=== PATIENT | female | born 1970 | race Caucasian/White ===

== ENCOUNTER 2024-05-24 08:03 | Emergency (ER) | payer OTHER, SELFPAY ==
--- NOTE | 2024-05-24 08:12 | ED.URI ---
HPI - URI/Sore Throat General Chief Complaint: Urogenital-Female Stated Complaint: urinary issue Time Seen by Provider: 05/24/24 08:11 Source: patient Mode of arrival: ambulatory Limitations: no limitations History of Present Illness HPI Narrative: Shae is a 53-year-old female patient presenting to the clinic today with complaints of symptoms of urinary tract infection. States that her symptoms started yesterday with bladder pain, nausea, and left flank pain. Gets frequent UTI/kidney infections. She has been taking [id number] azo to treat her symptoms. She denies any fever chills. Does feel slightly lightheaded. Denies any chest pain, shortness breath, abdominal pain, or body aches. Related Data Home Medications Medication Instructions Recorded Confirmed alprazolam 1 mg tablet 1 mg PO BID 05/24/24 05/24/24 bupropion HCl 300 mg 24 hr tablet, 300 mg PO DAILY 05/24/24 05/24/24 extended release levothyroxine 125 mcg tablet 125 mcg PO DAILY 05/24/24 05/24/24 meloxicam 15 mg tablet 15 mg PO DAILY 05/24/24 05/24/24 phentermine 30 mg capsule 30 mg PO DAILY 05/24/24 05/24/24 polyethylene glycol 3350 17 17 g PO DAILY 05/24/24 05/24/24 gram/dose oral powder (Miralax) Allergies Allergy/AdvReac Type Severity Reaction Status Date / Time penicillin G Allergy Mild hives Verified 05/24/24 08:17 Review of Systems Review of Systems: Pertinent positives per HPI. Patient denies any fever, chills, rash, headache, visual changes, dizziness, cough, runny nose, sore throat, shortness of breath, chest pain, palpitations, diarrhea, constipation, abdominal pain. PMFSH Comments At the time of my signature, I reviewed and agree with the nursing past medical, surgical, social, and family history. There is no relevant family history pertinent to the patient complaint. Exam Narrative: General: Well-developed, obese, in no apparent distress. Head: Normocephalic, atraumatic. Cardio: Regular rate and rhythm, s1 and s2 normal, no murmur appreciated. Resp: Clear to auscultation bilaterally, no rhonchi, rales, wheezing or rubs. Abdomen: Soft, pliable, bowel sounds present in all quadrants, non-tender to palpation, no organomegly, no CVAT tenderness. Course Course Emergency Course: Portions of this record may have been created with voice recognition software. Level of Care: Express Care Visit Vital Signs Vital signs: Vital Signs Temperature 37.2 C 05/24/24 08:23 Pulse Rate 102 H 05/24/24 08:23 Respiratory Rate 16 05/24/24 08:23 Blood Pressure 97/61 L 05/24/24 08:23 Pulse Oximetry 100 05/24/24 08:23 Oxygen Delivery Room Air 05/24/24 08:23 Temperature 37.2 C 05/24/24 08:23 Pulse Rate 102 H 05/24/24 08:23 Respiratory Rate 16 05/24/24 08:23 Blood Pressure 97/61 L 05/24/24 08:23 Pulse Oximetry 100 05/24/24 08:23 Oxygen Delivery Room Air 05/24/24 08:23 Vital signs reviewed MDM - URI/Sore Throat MDM Narrative Medical decision making narrative: At the time of visit patient is resting comfortably on the exam table. Patient appears to be nontoxic. Labs: Urine culture was sent to the lab. Urine dip was not ordered as this would be skewed due to azo-urine is brownish orange appearing Plan: I suspect patient has UTI/early pyelonephritis. Patient not wanting to go to the ED at this time for further evaluation. Prescription for ciprofloxacin was sent to the pharmacy. We will send urine for culture. Supportive measures were discussed with the patient and they voiced understanding discharge instructions and agrees to treatment plan. Return precautions reviewed Differential Diagnosis Differential diagnosis: Likely upper respiratory infection, otitis media, sinusitis, viral infection, bronchitis, influenza, pharyngitis and other (COVID) Discharge Plan Discharge Clinical Impression: Pyelonephritis Urinary tract infection Qualifiers: Urinary tract infection type: acute cysti
[2024-05-24 08:23] VITALS: BP 97/61; PULSE 102; RESP 16; TEMP 37.2; O2SAT 100
== END 2024-05-24 08:48 | disposition home or self-care (01) ==
PROVIDERS: Emergency Provider Nurse Practitioner Family; PCP Family Medicine
DX: N12 Tubulo-interstitial nephritis, not specified as acute or chronic (principal); N30.01 Acute cystitis with hematuria; E03.9 Hypothyroidism, unspecified; F41.9 Anxiety disorder, unspecified; F32.A Depression, unspecified; Z85.528 Personal history of other malignant neoplasm of kidney; Z90.5 Acquired absence of kidney; Z90.711 Acquired absence of uterus with remaining cervical stump
CPT/HCPCS: 87077; 87086; 87088; 87186; 99203; G0463

== ENCOUNTER 2024-12-27 09:15 | Emergency (ER) | payer OTHER, SELFPAY ==
[2024-12-27 09:19] VITALS: BP 86/57; PULSE 93; RESP 19; TEMP 36.5; O2SAT 100
--- NOTE | 2024-12-27 09:33 | ED.FEMALEGU ---
HPI - Female Genitourinary General Chief complaint: Urogenital-Female Stated complaint: UTI Time Seen by Provider: 12/27/24 09:33 Source: patient Mode of arrival: ambulatory Limitations: no limitations History of Present Illness HPI Narrative: 54-year-old female presents with complaint of urinary frequency, urgency, burning since yesterday. afebrile. no abdominal or back pain. Took a dose of azo yesterday. All systems reviewed and negative except as noted above. Related Data Home Medications ?Medication ?Instructions ?Recorded ?Confirmed ?Last Taken ?Type alprazolam 1 mg tablet 1 mg PO BID 05/24/24 05/24/24 Unknown History bupropion HCl 300 mg 24 hr tablet, 300 mg PO DAILY 05/24/24 05/24/24 Unknown History extended release levothyroxine 125 mcg tablet 125 mcg PO DAILY 05/24/24 05/24/24 Unknown History topiramate 25 mg tablet mg 12/27/24 Unknown History Allergies Allergy/AdvReac Type Severity Reaction Status Date / Time penicillin G Allergy Mild hives Verified 12/27/24 09:29 Review of Systems Review of Systems: CONSTITUTIONAL: Denies fever, chills, or sweats. EYES: Denies visual changes, redness, or discharge. ENT: Denies rhinorrhea, congestion, sore throat, or otalgia. CARDIOVASCULAR: Denies chest pain, palpitations, or edema. RESPIRATORY: Denies cough or dyspnea. GASTROINTESTINAL: Denies abdominal pain, nausea, vomiting, or diarrhea. GENITOURINARY: Reports urinary frequency, urgency, dysuria SKIN: Denies rash or itching. MUSCULOSKELETAL: Denies back pain, joint pain, or myalgia. NEUROLOGIC: Denies headache, numbness, or weakness. PSYCHIATRIC: Denies anxiety or depression. All other systems reviewed are negative, except as documented in HPI. PMFSH Comments At time of signature, agree with nursing past medical, surgical, social and family history. There is no relevant family history pertinent to the presenting complaint. Exam Narrative: GENERAL: This is a well-nourished, well-developed patient, in no apparent distress. HEAD: normocephalic, atraumatic. EYES: PERRL. Sclera clear/white. Vision is grossly intact. EARS: External ears normal NOSE: External nose normal NECK: Neck supple, non-tender without lymphadenopathy, masses or thyromegaly. CARDIOVASCULAR: Regular rate and rhythm without murmurs, gallops, or rubs. RESPIRATORY: Clear to auscultation. Breath sounds equal bilaterally. No wheezes, rales, or rhonchi. SKIN: warm, Dry, intact with no suspicious lesions or rash, good texture and turgor. NEURO: awake, alert, and oriented to person, place and time. There were no obvious focal neurologic abnormalities. EXTREMITIES: No joint tenderness, effusion, or edema noted. Course Course Level of Care: Express Care Visit Vital Signs Vital signs: Vital Signs Temperature 36.5 C 12/27/24 09:19 Pulse Rate 93 12/27/24 09:19 Respiratory Rate 19 12/27/24 09:19 Blood Pressure 86/57 L 12/27/24 09:19 Pulse Oximetry 100 12/27/24 09:19 Oxygen Delivery Room Air 12/27/24 09:19 Temperature 36.5 C 12/27/24 09:19 Pulse Rate 93 12/27/24 09:19 Respiratory Rate 19 12/27/24 09:19 Blood Pressure 100/69 12/27/24 09:50 Pulse Oximetry 100 12/27/24 09:19 Oxygen Delivery Room Air 12/27/24 09:19 reviewed MDM - Female Genitourinary MDM Narrative Medical decision making narrative: unable to complete urinalysis today due to bright orange urine from taking azo. Urine culture ordered. Will start antibiotic. Patient is well-appearing, nontoxic. Please be advised this is a medical document. It is intended for [id number] communication. It is written in medical language and may contain unfamiliar abbreviations or verbiage. Medical documents are intended to carry relevant information, facts as evident, and the clinical opinion of the practitioner at the time of the encounter. This report may have been done utilizing a voice recognition system. Attempts have been made to correct errors. However, there may be uncorrected grammatical, spelling, and recognition errors present. The file time of this note does not necessarily represent the time of service. Discharge Plan Discharge Clinical Impression: Urinary tract infection Patient Disposition: Home, Self-Care Condition: Stable Instructions: Antibiotic Form, Urinary Tract Infection in Women (ED) Additional Instructions: take medications as prescribed. Take Tylenol or ibuprofen every 6-8 hours as needed for pain and fever. Drink at least 64 oz of water a day. See your doctor symptoms are not improving. Patient Language: Hungarian Prescriptions: New phenazopyridine [Pyridium] 200 mg tablet 200 mg PO TID PRN (Reason: pain) 3 Days Qty: 10 0RF sulfamethoxazole-trimethoprim [Bactrim DS] 800-160 mg tablet 1 tablet PO Q12H 5 Days Qty: 10 0RF No Action alprazolam 1 mg tablet 1 mg PO BID levothyroxine 125 mcg tablet 125 mcg PO DAILY bupropion HCl 300 mg tablet extended release 24 hr 300 mg PO DAILY topiramate 25 mg tablet Follow-up/Referrals: Naveed,Simba Koch MD [Primary Care Provider] - Time of Disposition: 09:40
[2024-12-27 09:50] VITALS: BP 100/69
== END 2024-12-27 09:55 | disposition home or self-care (01) ==
PROVIDERS: Emergency Provider Nurse Practitioner Family; PCP Family Medicine
DX: N39.0 Urinary tract infection, site not specified (principal); B96.20 Unspecified Escherichia coli [E. coli] as the cause of diseases classified elsewhere
CPT/HCPCS: 87086; 87186; 99213; G0463

== ENCOUNTER 2025-01-24 15:19 | Emergency (ER) | payer OTHER, SELFPAY ==
[2025-01-24 15:22] VITALS: BP 111/66; PULSE 71; RESP 20; TEMP 36.8; O2SAT 100
--- NOTE | 2025-01-24 15:22 | ED.FEMALEGU ---
HPI - Female Genitourinary General Chief complaint: Urogenital-Female Stated complaint: UTI Time Seen by Provider: 01/24/25 15:25 Source: patient Mode of arrival: ambulatory Limitations: no limitations History of Present Illness HPI Narrative: Shae is a 54-year-old female patient presenting to the clinic today with complaints of possible UTI. States that she has been getting reoccurring UTIs likely due to taking Zep bound. States about every 2 weeks she gets a UTI. Denies any fevers, chills, or body aches. Is complaining of burning, frequency, and urgency without flank pain or abdominal pain. No nausea or vomiting. Related Data Home Medications ?Medication ?Instructions ?Recorded ?Confirmed ?Last Taken ?Type alprazolam 1 mg tablet 1 mg PO BID 05/24/24 05/24/24 Unknown History bupropion HCl 300 mg 24 hr tablet, 300 mg PO DAILY 05/24/24 05/24/24 Unknown History extended release levothyroxine 125 mcg tablet 125 mcg PO DAILY 05/24/24 05/24/24 Unknown History topiramate 25 mg tablet mg 12/27/24 Unknown History Allergies Allergy/AdvReac Type Severity Reaction Status Date / Time sulfamethoxazole (From Allergy Intermediate Hives Verified 01/24/25 17:03 Bactrim) trimethoprim (From Bactrim) Allergy Intermediate Hives Verified 01/24/25 17:03 penicillin G Allergy Mild hives Verified 01/24/25 15:21 Review of Systems Review of Systems: Pertinent positives per HPI. Patient denies any fever, chills, rash, headache, visual changes, dizziness, cough, runny nose, sore throat, shortness of breath, chest pain, palpitations, nausea, vomiting, diarrhea, constipation, abdominal pain,. PMFSH Comments At the time of my signature, I reviewed and agree with the nursing past medical, surgical, social, and family history. There is no relevant family history pertinent to the patient complaint. Exam Narrative: General: Well-developed, well nourished, in no apparent distress. Head: Normocephalic, atraumatic. Cardio: Regular rate and rhythm, s1 and s2 normal, no murmur appreciated. Resp: Clear to auscultation bilaterally, no rhonchi, rales, wheezing or rubs. Abdomen: Soft, pliable, bowel sounds present in all quadrants, non-tender to palpation, no organomegly, no CVAT tenderness. Course Course Emergency Course: Portions of this record may have been created with voice recognition software. Level of Care: Express Care Visit Vital Signs Vital signs: Vital Signs Temperature 36.8 C 01/24/25 15:22 Pulse Rate 71 01/24/25 15:22 Respiratory Rate 20 01/24/25 15:22 Blood Pressure 111/66 01/24/25 15:22 Pulse Oximetry 100 01/24/25 15:22 Oxygen Delivery Room Air 01/24/25 15:22 Temperature 36.8 C 01/24/25 15:22 Pulse Rate 71 01/24/25 15:22 Respiratory Rate 20 01/24/25 15:22 Blood Pressure 111/66 01/24/25 15:22 Pulse Oximetry 100 01/24/25 15:22 Oxygen Delivery Room Air 01/24/25 15:22 Vital signs reviewed MDM - Female Genitourinary MDM Narrative Medical decision making narrative: At the time of visit patient is resting comfortably on the exam table. Patient appears to be nontoxic. Labs: UA dip positive for leukocytes and blood. We will send urine for culture. Plan: I suspect patient has acute cystitis. Will place patient on Bactrim. Supportive measures were discussed with the patient and they voiced understanding discharge instructions and agrees to treatment plan. Return precautions reviewed 1700: Patient called back after taking 1 dose of the Bactrim and states she developed highs and some burning of her hands. She was instructed to discontinue the antibiotic. If symptoms worsen she will need to go the ER to be evaluated for possible Phil Vic syndrome. She was made aware of this and voiced understanding. I will send in a new prescription for ciprofloxacin Differential Diagnosis Differential diagnosis: Likely urinary tract infection, bacterial vaginosis, trichomoniasis, cervicitis, ovarian cyst, vaginitis, ruptured ovarian cyst, cyst of Bartholin's gland, cystitis and dysmenorrhea Lab Data Labs: Lab Results 01/24/25 Range/Units 15:29 POC Urine Color Yellow POC Urine Clarity Cloudy POC Urine pH 6.5 POC Ur Specif [place] 1.010 POC Urine Protein Negative (Negative) POC Ur Glucose (UA) Negative (Negative) POC Urine Ketones Negative (Negative) POC Urine Blood 1+ (Negative) POC Urine Nitrite Negative (Negative) POC Urine Bilirubin Negative (Negative) POC Urine Urobilinogen 0.2 POC U Leukocyte Esteras 3+ (Negative) Discharge Plan Discharge Clinical Impression: Urinary tract infection Patient Disposition: Home Condition: Stable Instructions: Antibiotic Form, Urinary Tract Infection in Women (ED) Additional Instructions: Take Bactrim as prescribed Urinalysis positive for leukocytes and blood. Increase fluids and stay well hydrated Wipe front to back. May use wet wipes. Avoid tub baths If sexually active- pee before and after intercourse. Wear cotton panties Avoid tight clothing up against the genitals Follow up with your PCP in 1 week if symptoms persist. Patient Language: Kittitian Prescriptions: New sulfamethoxazole-trimethoprim [Bactrim DS] 800-160 mg tablet 1 tablet PO Q12H 7 Days Qty: 14 0RF ciprofloxacin HCl [Cipro] 500 mg tablet 500 mg PO Q12H 7 Days Qty: 14 0RF No Action alprazolam 1 mg tablet 1 mg PO BID levothyroxine 125 mcg tablet 125 mcg PO DAILY bupropion HCl 300 mg tablet extended release 24 hr 300 mg PO DAILY topiramate 25 mg tablet Follow-up/Referrals: Naveed,Simba Koch MD [Primary Care Provider] - Time of Disposition: 15:41 Quality NIHSS Nursing Documentation ED NIHSS nursing documentation: reviewed/agree
[2025-01-24 15:35] LABS: EDUAAPPEAR Cloudy; EDUABILI Negative (Negative); EDUABLOOD 1+ (Negative); EDUACOLOR1 Yellow; EDUAGLUCOSE Negative (Negative); EDUAKETONE Negative (Negative); EDUALEUKO 3+ (Negative); EDUANITRATE Negative (Negative); EDUAPH 6.5; EDUAPROTEIN Negative (Negative); EDUAUROBILI 0.2
== END 2025-01-24 15:45 | disposition home or self-care (01) ==
PROVIDERS: Emergency Provider Nurse Practitioner Family; PCP Family Medicine
DX: N39.0 Urinary tract infection, site not specified (principal)
CPT/HCPCS: 81003; 87086; 87186; 99213; G0463